=== PATIENT | male | born 1985 | race Caucasian/White ===

== ENCOUNTER 2017-03-19 00:43 | Emergency (ER) | payer OTHER ==
[~2017-03-19] VITALS: Ht 175.3 cm; Wt 81.8 kg
[~2017-03-19 00:43] MED LIST: AUGMENTIN875 MG PO; NO HOME MEDS; NOHOMEMEDS; OXYCODONE HCL5 MG PO; PATANOL OP100 DROP/5 BOTH EYES; PRILOSEC20 MG PO; ULTRAM50 MG PO; ZOFRAN ODT4 MG PO
[2017-03-19 03:11] VITALS: BP 131/94
[2017-03-20] MEDS ORDERED: KEFLEX750 MG PO (20:21)
== END 2017-03-19 03:13 | disposition home or self-care (01) ==
LOC: EME 00:43
PROC: 0HQ1XZZ Repair Face Skin, External Approach (ICD-10-PCS; principal; 2017-03-19)
DX: S01.81XA Laceration without foreign body of other part of head, initial encounter (principal); S06.0X0A Concussion without loss of consciousness, initial encounter; W01.198A Fall on same level from slipping, tripping and stumbling with subsequent striking against other object, initial encounter; Y92.000 Kitchen of unspecified non-institutional (private) residence as the place of occurrence of the external cause; J45.909 Unspecified asthma, uncomplicated; Z86.73 Personal history of transient ischemic attack (TIA), and cerebral infarction without residual deficits; F17.200 Nicotine dependence, unspecified, uncomplicated
CPT/HCPCS: 70450; 99281; 99284

== ENCOUNTER 2017-03-20 19:09 | Emergency (ER) | payer OTHER ==
[~2017-03-20] VITALS: Ht 177.8 cm; Wt 82.0 kg
[2017-03-20] MEDS ORDERED: KEFLEX750 MG PO (20:21)
[2017-03-20 20:41] VITALS: BP 139/92
== END 2017-03-20 20:44 | disposition home or self-care (01) ==
LOC: EME 19:09
DX: L03.211 Cellulitis of face (principal); F17.200 Nicotine dependence, unspecified, uncomplicated; Z91.030 Bee allergy status; Z88.5 Allergy status to narcotic agent; J45.909 Unspecified asthma, uncomplicated